=== PATIENT | male | born 1940 | race Caucasian/White ===

== ENCOUNTER 2022-01-28 05:22 | Emergency (ER) | payer MEDICARE, OTHER ==
[~2022-01-28] VITALS: Ht 182.9 cm; Wt 75.0 kg
[~2022-01-28 05:22] MED LIST: ASPI-100 PO; CARCD120C PO; LISI-642 PO
[2022-01-28 06:38] LABS: BASOPHILS % (AUTO) 0.5 % (0-1); EOSINOPHILS % (AUTO) 0 % (0-6); HEMATOCRIT 48.9 % (42.0-52.0); HEMOGLOBIN 16.7 g/dl (14.0-17.9); LYMPHOCYTES # (AUTO) 0.8 X10'3 (1.1-4.8); LYMPHOCYTES % (AUTO) 19.3 % (21-51); MEAN CORPUSCULAR HEMOGLOBIN 30.6 PG (27.0-31.0); MEAN CORPUSCULAR HGB CONC 34.2 g/dL (33.0-36.5); MEAN CORPUSCULAR VOLUME 89.6 FL (78-98); MEAN PLATELET VOLUME 7.7 FL (7.4-10.4); MONOCYTES # (AUTO) 0.5 X10'3 (0-0.9); MONOCYTES % (AUTO) 12.4 % (2-12); NEUTROPHILS # (AUTO) 2.9 X10'3 (1.8-7.7); NEUTROPHILS % (AUTO) 67.8 % (42-75); PLATELET COUNT 204 X10'3 (140-440); RED BLOOD COUNT 5.46 X10'6 (4.70-6.10); RED CELL DISTRIBUTION WIDTH 13.3 % (11.5-14.5); WHITE BLOOD COUNT 4.3 X10'3 (4.5-11.0)
[2022-01-28 06:53] LABS: ALANINE AMINOTRANSFERASE 25 U/L (12-78); ALBUMIN 4.2 G/DL (3.4-5.0); ALBUMIN/GLOBULIN RATIO 0.9 (1.1-1.5); ALKALINE PHOSPHATASE 78 IU/L (46-116); ANION GAP 8 (8-16); ASPARTATE AMINO TRANSFERASE 38 U/L (10-37); BILIRUBIN,TOTAL 0.5 MG/DL (0.1-1.0); BLOOD UREA NITROGEN 23 MG/DL (7-18); BUN/CREATININE RATIO 13.5 (5.4-32.0); CALCIUM 9.1 MG/DL (8.5-10.1); CHLORIDE 101 MMOL/L (99-107); GLUCOSE 147 MG/DL (70-104); LIPASE 113 U/L (73-393); POTASSIUM 3.8 MMOL/L (3.5-5.1); SODIUM 139 MMOL/L (135-145); TOTAL CARBON DIOXIDE 29.6 MMOL/L (24-32); TOTAL PROTEIN 8.9 G/DL (6.4-8.2); eGFR 39 ML/MIN
[2022-01-28 08:01] LABS: UA COLLECTION TYPE CLN CATCH MIDSTREAM
[2022-01-28 08:03] LABS: CLARITY,URINE CLOUDY (Clear); COLOR,URINE YELLOW (Yellow); GLUCOSE, URINE NEGATIVE (Neg); KETONES,URINE NEGATIVE (Neg); LEUKOCYTE ESTERASE ,URINE NEGATIVE (Neg); NITRITES, URINE NEGATIVE (Neg); OCCULT BLOOD,URINE MODERATE (Neg); PROTEIN,URINE 100 mg/dl (Neg); UROBILINOGEN,URINE 0.2 E.U/dL (0.2-1.0)
[2022-01-28 08:10] LABS: BACTERIA,URINE 1+ /HPF (Neg); FINE GRANULAR CAST 0-3 /LPF (NEGATIVE); SQUAMOUS EPITHELIAL CELL,UR FEW /LPF (FEW); YEAST MODERATE /HPF (NEGATIVE)
--- NOTE | 2022-01-28 10:01 | NUR ---
Pt to CT
[2022-01-28] MEDS ORDERED: ondansetron 4mg rapidly disintigrating tab PO ONE (11:10)
[2022-01-28] MEDS ORDERED: BEBTELOVIMAB 175 MG/2 ML VIAL IV ONE (11:10)
[2022-01-28] MEDS ORDERED: cephalexin 500mg capsule PO ONE (11:10)
[2022-01-28] MEDS ORDERED: acetaminophen 325mg tablet PO ONE (11:10)
[2022-01-28] MEDS ORDERED: ONDA4TAB12 PO (11:18)
[2022-01-28] MEDS ORDERED: NIRM1TAB PO (11:18)
[2022-01-28] MEDS ORDERED: CEPH-585 PO (11:18)
[2022-01-28 13:07] VITALS: BP 139/98
== END 2022-01-28 13:14 | disposition home or self-care (01) ==
LOC: ER 05:22
DX: U07.1 COVID-19 (principal); N39.0 Urinary tract infection, site not specified; R31.9 Hematuria, unspecified; I11.0 Hypertensive heart disease with heart failure; Z79.2 Long term (current) use of antibiotics
CPT/HCPCS: 36415; 74176; 80053; 81001; 83690; 85025; 87088; 87502; 87503; 87811; 99284; M0222; Q0222; 96374